=== PATIENT | female | born 1960 | race Caucasian/White ===

== ENCOUNTER → 2016-12-25 | Outpatient (CLI) | payer BC | LOC: MAMMO 15:06 | DX: Z12.31 Encounter for screening mammogram for malignant neoplasm of breast (principal); N63 Unspecified lump in breast | CPT/HCPCS: G0202 ==

== ENCOUNTER → 2018-02-26 | Outpatient (CLI) | payer BC | LOC: MAMMO 13:45 | DX: Z12.31 Encounter for screening mammogram for malignant neoplasm of breast (principal); N60.02 Solitary cyst of left breast; Z98.890 Other specified postprocedural states ==

== ENCOUNTER → 2018-12-11 | Outpatient (CLI) | payer BC ==
[2018-12-11 07:52] LABS: HEMATOCRIT 43.9 % (37.0-47.0); HEMOGLOBIN 14.2 g/dL (12.5-16.0); MEAN PLATELET VOLUME 9.8 fl (7.4-10.4); RED BLOOD COUNT 4.56 M/mm3 (4.10-5.30); RED CELL DISTRIBUTION WIDTH 13.2 % (11.5-14.5); WHITE BLOOD COUNT 6.8 K/mm3 (4.8-10.8)
[2018-12-11 07:59] LABS: URINE APPEARANCE CLEAR; URINE BILIRUBIN NEGATIVE (NEGATIVE); URINE BLOOD NEGATIVE (NEGATIVE); URINE COLOR YELLOW; URINE GLUCOSE NEGATIVE (NEGATIVE); URINE KETONE NEGATIVE (NEGATIVE); URINE LEUKOCYTE ESTERASE NEGATIVE (NEGATIVE); URINE NITRATE NEGATIVE (NEGATIVE); URINE PROTEIN(semi-quant) NEGATIVE (NEGATIVE); URINE UROBILINOGEN NORMAL (NORMAL); URINE WBC 0-1 /hpf (0-3)
[2018-12-11 08:13] LABS: ALBUMIN 4.1 g/dL (3.5-5.0); POTASSIUM 4.1 mmol/L (3.5-5.1)
[2018-12-11 08:14] LABS: CALCIUM 8.9 mg/dL (8.3-10.5)
[2018-12-11 08:15] LABS: TOTAL PROTEIN 6.8 g/dL (6.4-8.3)
[2018-12-11 08:17] LABS: TOTAL BILIRUBIN 0.4 mg/dL (0.2-1.2)
== END ==
LOC: LAB 07:29
PROVIDERS: Obstetrics & Gynecology
DX: Z13.220 Encounter for screening for lipoid disorders (principal)

== ENCOUNTER → 2019-04-21 | Outpatient (CLI) | payer BC | LOC: MAMMO 14:30 | DX: Z12.31 Encounter for screening mammogram for malignant neoplasm of breast (principal); N63.20 Unspecified lump in the left breast, unspecified quadrant; N63.10 Unspecified lump in the right breast, unspecified quadrant ==

== ENCOUNTER → 2020-05-04 | Outpatient (CLI) | payer OTHER | LOC: RAD 09:43 | DX: S49.91XA Unspecified injury of right shoulder and upper arm, initial encounter (principal) ==

== ENCOUNTER → 2020-05-05 | Outpatient (CLI) | payer OTHER | LOC: RAD 09:57 | DX: S69.91XA Unspecified injury of right wrist, hand and finger(s), initial encounter (principal) ==

== ENCOUNTER → 2020-05-23 | Outpatient (CLI) | payer BC | LOC: MAMMO 07:00 | DX: N60.01 Solitary cyst of right breast (principal) | CPT/HCPCS: 15989; 15990; A4648 ==

== ENCOUNTER → 2020-12-08 | Outpatient (REF) | LOC: LAB 13:48 | DX: Z13.220 Encounter for screening for lipoid disorders (principal); R53.83 Other fatigue; R73.03 Prediabetes ==

== ENCOUNTER → 2021-01-19 | Day surgery (SDC) | payer BC | END | disposition home or self-care (01) | LOC: MSO 09:41 | DX: D12.8 Benign neoplasm of rectum (principal); D12.0 Benign neoplasm of cecum; J45.909 Unspecified asthma, uncomplicated; F17.210 Nicotine dependence, cigarettes, uncomplicated; Z79.899 Other long term (current) drug therapy; Z79.51 Long term (current) use of inhaled steroids | CPT/HCPCS: 00811; J2704; J7120 ==

== ENCOUNTER → 2021-10-23 | Outpatient (CLI) | payer BC | LOC: MAMMO 14:30 | DX: Z12.31 Encounter for screening mammogram for malignant neoplasm of breast (principal); N63.10 Unspecified lump in the right breast, unspecified quadrant ==

== ENCOUNTER → 2021-10-30 | Outpatient (CLI) | payer BC | LOC: RAD 07:00 | DX: N60.12 Diffuse cystic mastopathy of left breast (principal) ==

== ENCOUNTER → 2022-01-10 | Outpatient (CLI) | payer BC ==
[2022-01-10 07:59] LABS: URINE WBC 0 /hpf (0-3)
[2022-01-10 08:08] LABS: BASO # 0.01 K/mm3 (0.02-0.10); EOS % 1.8 % (1.0-5.0); HEMATOCRIT 40.1 % (37.0-47.0); HEMOGLOBIN 13.2 g/dL (12.5-16.0); LYMPH# 1.79 K/mm3 (1.50-4.00); MEAN CELL VOLUME 97 fl (78-100); MEAN CORPUSCULAR HEMOGLOBIN 32 pg (27-31); MEAN CORPUSCULAR HGB CONC 33 g/dL (33-37); MEAN PLATELET VOLUME 9.7 fl (7.4-10.4); MONO # 0.35 K/mm3 (0.20-0.80); NEU # 3.34 K/mm3 (1.40-6.50); PLATELET COUNT 236 K/mm3 (130-400); RED BLOOD COUNT 4.13 M/mm3 (4.10-5.30); WHITE BLOOD COUNT 5.6 K/mm3 (4.8-10.8)
[2022-01-10 08:59] LABS: ALBUMIN 4.1 g/dL (3.4-4.8); POTASSIUM 4.2 mmol/L (3.5-5.1)
[2022-01-10 09:00] LABS: CALCIUM 9.2 mg/dL (8.3-10.5)
[2022-01-10 09:01] LABS: TOTAL PROTEIN 6.6 g/dL (6.2-8.1)
[2022-01-10 09:03] LABS: TOTAL BILIRUBIN 0.4 mg/dL (0.2-1.2)
[2022-01-10 09:45] LABS: PH-URINE 7.5 (5.0 - 8.0); URINE APPEARANCE HAZY; URINE BILIRUBIN NEGATIVE (NEGATIVE); URINE BLOOD NEGATIVE (NEGATIVE); URINE COLOR YELLOW; URINE GLUCOSE NEGATIVE (NEGATIVE); URINE KETONE NEGATIVE (NEGATIVE); URINE LEUKOCYTE ESTERASE NEGATIVE (NEGATIVE); URINE NITRATE NEGATIVE (NEGATIVE); URINE PROTEIN(semi-quant) NEGATIVE (NEGATIVE); URINE UROBILINOGEN NORMAL (NORMAL)
== END ==
LOC: LAB 07:45
PROVIDERS: Family Medicine
DX: Z00.00 Encounter for general adult medical examination without abnormal findings (principal)

== ENCOUNTER → 2023-03-20 | Outpatient (CLI) | payer BC | LOC: MAMMO 13:29 | DX: Z12.31 Encounter for screening mammogram for malignant neoplasm of breast (principal); N60.12 Diffuse cystic mastopathy of left breast; N60.11 Diffuse cystic mastopathy of right breast ==

== ENCOUNTER → 2023-10-30 | Outpatient (CLI) | payer BC | LOC: RAD 09:55 | DX: M25.512 Pain in left shoulder (principal) ==

== ENCOUNTER 2024-02-18 09:56 | Outpatient (RCR) | payer BC | END 2024-03-16 | disposition home or self-care (01) | LOC: PT | DX: M25.512 Pain in left shoulder (principal) ==

== ENCOUNTER → 2024-03-31 | Outpatient (CLI) | payer BC | LOC: MAMMO 07:56 | DX: N64.4 Mastodynia (principal) ==